=== PATIENT | female | born 1965 | race African-American/Black ===

== ENCOUNTER 2019-06-17 22:29 | Emergency (ER) | payer OTHER ==
[~2019-06-17] VITALS: Ht 185.4 cm; Wt 138.3 kg
[2019-06-18] MEDS ORDERED: LISINOPRIL-HCT1 EAC2 PO (00:14)
[2019-06-18] MEDS ORDERED: CARVEDILOL25 MG PO (00:16)
[2019-06-18 00:18] VITALS: BP 193/99
== END 2019-06-18 00:31 | disposition home or self-care (01) ==
LOC: ER 22:29
DX: M66.0 Rupture of popliteal cyst (principal)